=== PATIENT | female | born 1930 | race Two or more races ===

== ENCOUNTER 2018-10-03 12:36 | Inpatient (IN) | payer MEDICAID ==
[~2018-10-03] VITALS: Ht 167.6 cm; Wt 70.8 kg
[~2018-10-03 12:36] MED LIST: ACET-868 GT; ALBU2.5V13 NEB; ALEN70TA3 GT; BISA10SU8 RC; CAPT25TA3 GT; CEFT1FRO2 IV; CRAN3875 GT; DOCU-270 GT; GLIP5TAB13 GT; HYDR-3974 GT; HYDR-4076 PO; IPRA0.2S49 NEB; MAGN400O6 GT; MELA1TAB27 GT; METO50TA16 GT; MULT1TAB11 GT; MYLANTA GT; NA P133E RC; RANI150C4 GT; RIVA10TA GT; TAMS-12 PO
[2018-10-03] MEDS ORDERED: IV NS 0.9% 500 ML BAG IV ONE (13:00)
[2018-10-03] MEDS ORDERED: VANCOMYCIN 1 GM in IV D5W 250 ML IV ONE (13:00)
[2018-10-03] MEDS ORDERED: PIPERACILLIN /TAZOBACTAM 3.375 G in IV D5W 50 ML IV ONE (13:00)
--- NOTE | 2018-10-03 13:13 | NUR ---
CALLED NURSING SUP REQUESTED MED SURG BED
[2018-10-03 13:16] LABS: BASOPHILS # (AUTO) 0.1 /CMM (0.0-0.2); BASOPHILS % (AUTO) 0.5 % (0.0-2.0); EOSINOPHILS % (AUTO) 0.5 % (0.0-6.0); HEMATOCRIT 32 % (33-45); HEMOGLOBIN 10.2 g/dL (11.5-14.8); LYMPHOCYTES # (AUTO) 1.5 /CMM (0.8-4.8); MEAN CORPUSCULAR HGB CONC 32 g/dl (31.0-36.0); MEAN CORPUSCULAR VOLUME 91 fL (82-100); MONOCYTES # (AUTO) 1.1 /CMM (0.1-1.30); MONOCYTES % (AUTO) 9.4 % (2.0-12.0); NEUTROPHILS % (AUTO) 76.6 % (43.0-81.0); PLATELET COUNT (AUTO) 282 /CMM (150-450); RED BLOOD CELL COUNT(AUTO) 3.44 MIL/uL (4.0-5.2); WHITE BLOOD COUNT (AUTO) 11.7 K/uL (4.3-11.0)
[2018-10-03 13:27] LABS: CALCIUM, SERUM 8.9 mg/dL (8.5-10.1); CARBON DIOXIDE 33 mmol/L (21-32); CHLORIDE 105 mmol/L (98-107); CREATININE 0.6 mg/dL (0.6-1.3); GLUCOSE 116 mg/dL (74-106); POTASSIUM 4.2 mmol/L (3.5-5.1); SODIUM SERUM 142 mmol/L (136-145); UREA NITROGEN, BLOOD 22 mg/dL (7-18)
[2018-10-03 13:35] LABS: ALANINE AMINOTRANSFERASE 44 U/L (12-78); ALBUMIN 2.4 g/dL (3.4-5.0); ALKALINE PHOSPHATASE 70 U/L (46-116); ASPARTATE AMINOTRANSFERASE 26 U/L (15-37); BILIRUBIN,DIRECT 0.1 mg/dL (0.0-0.2); BILIRUBIN,TOTAL 0.2 mg/dL (0.2-1.0); TOTAL PROTEIN, SERUM 6.5 g/dL (6.4-8.2)
--- NOTE | 2018-10-03 13:49 | NUR ---
PT BIB PA FOR EVAL OF L 3RD AND 4TH TOE REDNESS AND SWELLING WITH WOUND TO BOTTOM OF L 3RD TOE. NAD NOTED. RESP EVEN UNLABORED. PT CONFUSED, WHICH IS HER BASELINE PER MEDICAL RECORD. PT BECOMING AGITATED WHEN ATTEMPTED TO OBTAIN IV ACCESS AND IN AND OUT CATH, REQUIRED 3 STAFF TO HOLD HER DOWN. PT ATTEMPTED TO SPIT AT AND BITE STAFF. IN ER BED 11.
[2018-10-03 13:50] LABS: APPEARANCE,URINE Cloudy (CLEAR); BILIRUBIN,URINE Negative (NEGATIVE); BLOOD, URINE Negative Ery/uL (NEGATIVE); COLOR,URINE Yellow (YELLOW); KETONES,URINE Trace (NEGATIVE); LEUKOCYTE ESTERASE ,URINE Small (NEGATIVE); NITRITE, URINE Negative (NEGATIVE); PROTEIN,URINE Trace mg/dl (NEGATIVE); UGLUCOSE Negative (NEGATIVE)
[2018-10-03 13:52] LABS: RBC,URINE 0-2 /HPF (0-2)
[2018-10-03 13:53] LABS: BACTERIA,URINE Few /HPF (None Seen); SQUAMOUS EPITHELIAL CELL,UR Few /HPF (None Seen)
[2018-10-03] MEDS ORDERED: VIT500LI GT (13:55)
[2018-10-03] MEDS ORDERED: AMIN30LI27 GT (13:55)
[2018-10-03] MEDS ORDERED: SENN-168 GT (13:55)
[2018-10-03] MEDS ORDERED: AMOX-430 GT (13:55)
[2018-10-03] MEDS ORDERED: IPRA0.2S9 IH (13:55)
[2018-10-03] MEDS ORDERED: MELA1TAB15 GT (13:55)
[2018-10-03] MEDS ORDERED: NUT.237L30 GT (13:55)
[2018-10-03] MEDS ORDERED: MAG30ORA GT (13:55)
[2018-10-03] MEDS ORDERED: IBUP-1953 GT (13:55)
[2018-10-03] MEDS ORDERED: TAMS-12 GT (13:55)
[2018-10-03] MEDS ORDERED: ACET-2605 GT (13:55)
[2018-10-03] MEDS ORDERED: Z GUARD REMEDY 2 OZ OINT TP PRN (14:30)
[2018-10-03] MEDS ORDERED: MAGNESIUM HYDROXIDE 30 ML UDC PO PRN (14:30)
[2018-10-03] MEDS ORDERED: ACETAMINOPHEN 325 MG TABLET PO PRN (14:30)
[2018-10-03] MEDS ORDERED: ZOLPIDEM TARTRATE 5 MG TABLET PO PRN (14:30)
[2018-10-03] MEDS ORDERED: MAG HYDROX/AL HYDROX/SIMETH 30 ML UDC PO PRN (14:30)
[2018-10-03] MEDS ORDERED: ONDANSETRON HCL/PF 4 MG/2 ML VIAL IVP PRN (14:30)
--- NOTE | 2018-10-03 15:01 | NUR ---
BED 310-1
--- NOTE | 2018-10-03 15:28 | NUR ---
REPORT GIVEN TO VIRIDIANA RADER FOR ADMISSION
--- NOTE | 2018-10-03 15:45 | NUR ---
PT TRANSPORTED TO 310 IN STABLE CONDITION
[2018-10-03] MEDS ORDERED: FEE PK DOSING 1 MIN EA MC ONE (15:56)
[2018-10-03] MEDS ORDERED: VANCOMYCIN 1 GM in IV D5W 250 ML IV SCH (16:00)
[2018-10-03] MEDS ORDERED: IPRATROPIUM NEB FS 0.5 MG/2.5 ML AMPUL.NEB IH PRN (16:00)
[2018-10-03] MEDS ORDERED: MAG HYDROX/AL HYDROX/SIMETH 30 ML UDC GT PRN (16:00)
[2018-10-03] MEDS ORDERED: BISACODYL SUPP (10 MG) 10 MG/SUPP.RECT SUPP.RECT RC PRN (16:00)
[2018-10-03] MEDS ORDERED: ALBUTEROL FS 2.5 MG/0.5 ML VIAL.NEB NEB PRN (16:00)
--- NOTE | 2018-10-03 16:00 | NUR ---
MS RN NOTES RECEIVED 88 YEAR OLD FEMALE. PATIENT ADMITTED FROM ER. REPORT RECEIVED FROM SHIRLEY RADER. PATIENT ARRIVED VIA GURNEY. AWAKE, ALERT AND ORIENTED X 1, CONFUSED. PATIENT REORIENTED TO STAFF, TIME/DATE, SITUATION. PATIENT BREATHING EVEN AND UNLABORED. DENIES ANY PAIN OR DISCOMFORT. NO CHANGES IN LOC NOTED AT THIS TIME. ADMITTED UNDER MEDICAL SUPERVISION OF DR. MEDINA, AWARE OF PATIENT ADMISSION. PATIENT SON (SAVAGE) PRESENT AT UNIT, VERIFIED POLST FROM SNF STATING PATIENT IS DNR/DNI AND SON SAVAEG AGREED. PATIENT AND SON ORIENTED TO STAFF, ROOM, ROOM MATE, PLAN OF CARE. PATIENT KETP CLEAN, DRY AND COMFORTABLE. SKIN CHECK DONE AND NOTED WITH BILATERAL UNDERBREAST REDNESS, WOUND ON LEFT 3RD/4TH TOE. TOOK PICTURES BUT PATIENT COMBATIVE DESPITE AGREEING WHEN EXPLAINED WITH PROCEDURE. PATIENT RELAXED WHEN NO PROCEDURE/CARE IS BEING DONE. WILL CONTINUE TO MONITOR. BED LOCKED AND IN LOW POSITION. BILATERAL UPPER SIDE RAILS UP AND LOCKED. CALL LIGHT WITHIN EASY REACH
[2018-10-03] MEDS ORDERED: CAPTOPRIL 25 MG TABLET GT SCH (17:00)
[2018-10-03] MEDS: IV NS 0.9% 1,000 ML IV PRN (17:54)
[2018-10-03] MEDS: CEFTRIAXONE 1 G in IV D5W 50 ML IV SCH (17:54)
[2018-10-03] MEDS: DOCUSATE SODIUM 100 MG CAPSULE PO SCH (18:22)
[2018-10-03] MEDS: METOPROLOL TARTRATE 50 MG TABLET GT SCH (18:23)
[2018-10-03] MEDS: SENNOSIDES 8.6 MG TABLET GT SCH (18:24)
--- NOTE | 2018-10-03 18:50 | NUR ---
MS RN NOTES PATIENT RESTING INSIDE ROOM. AWAKE, ALERT AND ORIENTED TO SELF. REORIENTED NEEDED. PATIENT CALM AND RELAXED. NO ACUTE DISTRESS AT THIS TIME. NO CHANGES IN LOC NOTED. DENIES ANY PAIN OR DISCOMFORT. ALL NURSING NEEDS ATTENDED AND MET. PATIENT KEPT CLEAN, DRY AND COMFORTABLE. WILL ENDORSE TO INCOMING SHIFT FOR HUY. BED LOCKED AND IN LOW POSITION. BILATERAL UPPER SIDE RAILS UP AND LOCKED. CALL LIGHT WITHIN EASY REACH
--- NOTE | 2018-10-03 19:40 | NUR ---
MS/RN RECEIVE PATIENT AWAKE, ALERT, COMFORTABLE, NO DISTRESS NOTED, DAUGHTER AT BEDSIDE. PER DAUGHTER PATIENT IS HUNGRY, PER DAUGHTER PATIENT IS ON REGULAR DIET IN THE FACILITY THE PATIENT CAME FROM, AND THAT, THE GT IF FOR MEDICATION ADMINISTRATION ONLY. SENT MESSAGE TO TAMRA FLANAGAN DNP, TO GET DIET ORDER.
[2018-10-03 20:00] VITALS: BP 150/82
[2018-10-03] MEDS: GLUCERNA SHAKE 237 ML CAN GT SCH (21:00)
--- NOTE | 2018-10-03 21:07 | NUR ---
MS/RN PER VANESSA BARBOZA, NO PO DIET AT THIS TIME PER DR. MEDINA. INFORMED THE DAUGHTER AT BEDSIDE, VERBALIZED UNDERSTANDING.
[2018-10-03] MEDS: HYDROCODONE/APAP 5/325MG 1 EACH TABLET PO PRN (22:07)
--- NOTE | 2018-10-03 22:27 | NUR ---
MS/RN GT FEEDING BOLUS GLUCERNA CAN 237 MLS BID. GLUCERNA 237 MLS CAN NOT AVAILABLE. GLUCERNA BOTTLE RATE 19.75 MLS/HOUR STARTED.
--- NOTE | 2018-10-04 01:22 | NUR ---
MS/RN PATIENT IS SLEEPING AT THIS TIME, AROUSABLE, APPEAR COMFORTABLE, NO SIGNS OF DISTRESS NOTED, CALL LIGHT IN REACH. WILL CONTINUE TO MONITOR.
[2018-10-04] MEDS: VANCOMYCIN 500 MG in IV D5W 100 ML IV SCH ×2 (02:07→15:50)
--- NOTE | 2018-10-04 06:09 | NUR ---
MS/RN IV INFILTRATED, REMOVED IV, APPLIED COLD COMPRESS AND ELEVATED EXTREMITY ON PILLOW. ATTEMPTED TO INSERT IV X 1 BUT UNSUCCESSFUL DUE TO PATIENT'S NOT COOPERATION. WILL ENDORSE.
[2018-10-04] MEDS: glipiZIDE 5 MG TABLET GT SCH (06:55)
--- NOTE | 2018-10-04 07:01 | NUR ---
MS/RN PATIENT IS AWAKE, CONFUSED, COMFORTABLE, NO DISTRESS NOTED, ALL NEEDS ATTENDED AT THIS TIME, WILL CONTINUE TO MONITOR.
[2018-10-04 08:00] VITALS: BP 135/77
[2018-10-04] MEDS: METOPROLOL TARTRATE 50 MG TABLET GT SCH ×2 (09:19→17:31)
[2018-10-04] MEDS: TAMSULOSIN 0.4 MG CAP.SR.24H GT SCH (09:20)
[2018-10-04] MEDS: DOCUSATE SODIUM 100 MG CAPSULE PO SCH ×2 (09:21→17:00)
[2018-10-04] MEDS: LISINOPRIL (10MG) 10 MG TABLET GT SCH (09:21)
[2018-10-04] MEDS: SENNOSIDES 8.6 MG TABLET GT SCH ×2 (09:21→17:00)
[2018-10-04 10:56] LABS: BASOPHILS % (AUTO) 0.3 % (0.0-2.0); EOSINOPHILS % (AUTO) 0.7 % (0.0-6.0); HEMATOCRIT 30 % (33-45); HEMOGLOBIN 10.1 g/dL (11.5-14.8); LYMPHOCYTES # (AUTO) 1.7 /CMM (0.8-4.8); LYMPHOCYTES % (AUTO) 13.2 % (20.0-44.0); MEAN CORPUSCULAR HGB CONC 34 g/dl (31.0-36.0); MEAN CORPUSCULAR VOLUME 89 fL (82-100); MONOCYTES # (AUTO) 0.9 /CMM (0.1-1.30); MONOCYTES % (AUTO) 7.3 % (2.0-12.0); NEUTROPHILS # (AUTO) 9.9 /CMM (1.8-8.9); NEUTROPHILS % (AUTO) 78.5 % (43.0-81.0); PLATELET COUNT (AUTO) 305 /CMM (150-450); RED BLOOD CELL COUNT(AUTO) 3.33 MIL/uL (4.0-5.2); WHITE BLOOD COUNT (AUTO) 12.6 K/uL (4.3-11.0)
[2018-10-04 11:09] LABS: CALCIUM, SERUM 8.7 mg/dL (8.5-10.1); CARBON DIOXIDE 29 mmol/L (21-32); CHLORIDE 106 mmol/L (98-107); CREATININE 0.6 mg/dL (0.6-1.3); GLUCOSE 94 mg/dL (74-106); POTASSIUM 3.8 mmol/L (3.5-5.1); SODIUM SERUM 142 mmol/L (136-145); UREA NITROGEN, BLOOD 10 mg/dL (7-18)
[2018-10-04] MEDS: GLUCERNA SHAKE 237 ML CAN GT SCH ×2 (13:00→21:43)
[2018-10-04 13:21] LABS: CHOLESTEROL 158 mg/dL (<200); HDL CHOLESTEROL 55 mg/dL (40-60); LDL 89 mg/dL (0-99); TRIGLYCERIDES 90 mg/dL (30-150)
--- NOTE | 2018-10-04 15:21 | NUR ---
Nurse Notes: Tech is unable to perform the arterial and venous studyies, patient is too confused to lie still in bed, needs medication to calm her down, Will arrange daughter to come if patient can calm down with family.
[2018-10-04 17:00] VITALS: BP 114/84
[2018-10-04] MEDS: CEFTRIAXONE 1 G in IV D5W 50 ML IV SCH (17:30)
[2018-10-04] MEDS: IV NS 0.9% 1,000 ML IV PRN (19:30)
--- NOTE | 2018-10-04 19:30 | NUR ---
MS/RN RECEIVE PATIENT AWAKE, A LITTLE BIT RESTLESS, NO DISTRESS NOTED, SITTER AT BEDSIDE. WILL MONITOR.
[2018-10-04 20:00] VITALS: BP 91/66
[2018-10-04] MEDS ORDERED: LORAZEPAM INJ 2 MG/ML VIAL IV ONE (20:30)
--- NOTE | 2018-10-04 23:59 | NUR ---
MS/RN PATIENT IS SLEEPING AT THIS TIME, AROUSABLE, APPEAR COMFORTABLE, NO DISTRESS NOTED, SITTER AT BEDSIDE. WILL CONTINUE TO MONITOR.
[2018-10-05] MEDS: VANCOMYCIN 500 MG in IV D5W 100 ML IV SCH ×2 (02:12→16:12)
--- NOTE | 2018-10-05 04:45 | NUR ---
MS/RN IV INFILTRATED, REMOVED IV ELEVATED AFFECTED EXTREMITY, COLD COMPRESS APPLIED. UNABLE TO INSERT NEW IV PATIENT IN NOT COOPERATING. WILL TRY AGAIN LATER. WILL MONITOR.
[2018-10-05 06:16] LABS: BASOPHILS # (AUTO) 0.1 /CMM (0.0-0.2); BASOPHILS % (AUTO) 0.6 % (0.0-2.0); EOSINOPHILS % (AUTO) 1.1 % (0.0-6.0); HEMATOCRIT 32 % (33-45); HEMOGLOBIN 10.4 g/dL (11.5-14.8); LYMPHOCYTES # (AUTO) 1.6 /CMM (0.8-4.8); LYMPHOCYTES % (AUTO) 14.5 % (20.0-44.0); MEAN CORPUSCULAR HGB CONC 33 g/dl (31.0-36.0); MEAN CORPUSCULAR VOLUME 90 fL (82-100); MONOCYTES # (AUTO) 0.8 /CMM (0.1-1.30); NEUTROPHILS # (AUTO) 8.3 /CMM (1.8-8.9); NEUTROPHILS % (AUTO) 76.8 % (43.0-81.0); PLATELET COUNT (AUTO) 326 /CMM (150-450); RED BLOOD CELL COUNT(AUTO) 3.52 MIL/uL (4.0-5.2); WHITE BLOOD COUNT (AUTO) 10.7 K/uL (4.3-11.0)
[2018-10-05 06:25] LABS: CALCIUM, SERUM 8.7 mg/dL (8.5-10.1); CARBON DIOXIDE 27 mmol/L (21-32); CHLORIDE 105 mmol/L (98-107); CREATININE 0.7 mg/dL (0.6-1.3); GLUCOSE 136 mg/dL (74-106); PHOSPHORUS 3.5 mg/dL (2.5-4.9); POTASSIUM 3.7 mmol/L (3.5-5.1); SODIUM SERUM 143 mmol/L (136-145); UREA NITROGEN, BLOOD 9 mg/dL (7-18)
--- NOTE | 2018-10-05 07:03 | NUR ---
MS/RN PATIENT IS STILL SLEEPING, AROUSABLE, APPEAR COMFORTABLE, NO SIGNS OF DISTRESS NOTED. ALL NEEDS ATTENDED AT THIS TIME. WILL CONTINUE TO MONITOR.
[2018-10-05] MEDS: glipiZIDE 5 MG TABLET GT SCH (07:40)
[2018-10-05] MEDS: HYDROCODONE/APAP 5/325MG 1 EACH TABLET PO PRN ×2 (07:58→20:10)
[2018-10-05 08:00] VITALS: BP 160/109
[2018-10-05] MEDS: DOCUSATE SODIUM 100 MG CAPSULE PO SCH ×2 (09:00→17:00)
[2018-10-05] MEDS: LISINOPRIL (10MG) 10 MG TABLET GT SCH (09:46)
[2018-10-05] MEDS: METOPROLOL TARTRATE 50 MG TABLET GT SCH ×2 (09:46→18:17)
[2018-10-05] MEDS: TAMSULOSIN 0.4 MG CAP.SR.24H GT SCH (09:47)
[2018-10-05] MEDS: SENNOSIDES 8.6 MG TABLET GT SCH ×2 (09:47→18:14)
[2018-10-05] MEDS: GLUCERNA SHAKE 237 ML CAN GT SCH ×2 (09:56→20:10)
--- NOTE | 2018-10-05 10:10 | NUR ---
HELD COLACE PO. PT. RECEIVED PO MEDICATIONS VIA G TUBE. CAN NOT CRUSH COLACE PO TO ADMINISTER. WILL FOLLOW UP WITH .
[2018-10-05 16:00] VITALS: BP 108/82
[2018-10-05] MEDS ORDERED: DEXTROSE 50%-WATER 50 ML DISP.SYRIN IV PRN (16:30)
[2018-10-05] MEDS: LACTOBACILLUS RHAMNOSUS GG 1 EACH CAP.SPRINK PO SCH (18:14)
[2018-10-05] MEDS: CEFTRIAXONE 1 G in IV D5W 50 ML IV SCH (18:21)
[2018-10-05] MEDS: BLOOD SUGAR DIAGNOSTIC 1 EACH STRIP IN SCH ×2 (18:36→22:21)
[2018-10-05] MEDS: INSULIN REGULAR, HUMAN 100 UNIT/ML 3 ML VIAL SQ PRN ×2 (18:39→22:21)
--- NOTE | 2018-10-05 19:30 | NUR ---
RN OPENING NOTES Received patient sleeping in bed, easily arousable. 1:1 sitter at bedside. Breathing even and unlabored. Not in any distress. Peripheral IV infusing at 75mL/hr. Safety measures in place. CAll martinez within reach. Bed in low, locked position. Will continue to monitor accordingly.
[2018-10-05 20:00] VITALS: BP 134/73
--- NOTE | 2018-10-05 20:40 | NUR ---
RN CLOSING NOTES 1:1 SITTER AT BEDSIDE. PT. IS A&OX1, CONFUSED. NO S/S OF ACUTE DISTRESS. IV FLUIDS RUNNING AT 75 ML/HR. PT. HAS A G TUBE THAT IS PATENT, AND FLUSHING. IV ACCESS ON LEFT WRIST IS INTACT AND PATENT. BED IS IN LOWEST, AND LOCKED POSITION. 2 SIDE RAILS UP, AND CALL LIGHT IS WITHIN REACH. ENDORSED REPORT TO NURSE.
[2018-10-06] MEDS: VANCOMYCIN 500 MG in IV D5W 100 ML IV SCH (01:35)
[2018-10-06 06:16] LABS: BASOPHILS # (AUTO) 0.1 /CMM (0.0-0.2); BASOPHILS % (AUTO) 0.7 % (0.0-2.0); EOSINOPHILS % (AUTO) 2.3 % (0.0-6.0); HEMATOCRIT 34 % (33-45); LYMPHOCYTES % (AUTO) 30.7 % (20.0-44.0); MEAN CORPUSCULAR HGB CONC 33 g/dl (31.0-36.0); MEAN CORPUSCULAR VOLUME 90 fL (82-100); MONOCYTES # (AUTO) 0.9 /CMM (0.1-1.30); MONOCYTES % (AUTO) 8.9 % (2.0-12.0); NEUTROPHILS # (AUTO) 5.5 /CMM (1.8-8.9); NEUTROPHILS % (AUTO) 57.4 % (43.0-81.0); PLATELET COUNT (AUTO) 344 /CMM (150-450); RED BLOOD CELL COUNT(AUTO) 3.74 MIL/uL (4.0-5.2); WHITE BLOOD COUNT (AUTO) 9.7 K/uL (4.3-11.0)
[2018-10-06] MEDS: BLOOD SUGAR DIAGNOSTIC 1 EACH STRIP IN SCH ×2 (06:34→12:28)
[2018-10-06] MEDS: INSULIN REGULAR, HUMAN 100 UNIT/ML 3 ML VIAL SQ PRN (06:35)
[2018-10-06 06:45] LABS: CALCIUM, SERUM 8.7 mg/dL (8.5-10.1); CARBON DIOXIDE 28 mmol/L (21-32); CHLORIDE 107 mmol/L (98-107); CREATININE 0.7 mg/dL (0.6-1.3); GLUCOSE 100 mg/dL (74-106); MAGNESIUM 2.2 mg/dL (1.8-2.4); PHOSPHORUS 3.9 mg/dL (2.5-4.9); POTASSIUM 4.3 mmol/L (3.5-5.1); SODIUM SERUM 144 mmol/L (136-145); UREA NITROGEN, BLOOD 15 mg/dL (7-18)
[2018-10-06] MEDS: glipiZIDE 5 MG TABLET GT SCH (06:45)
--- NOTE | 2018-10-06 07:43 | NUR ---
RN CLOSING NOTES PATIENT SLEEPING IN BED, BUT EASILY AROUSABLE. 1:1 SITTER AT BEDSIDE. PATIENT IS ALERT, ORIENTED X 1, CONFUSED. NO S/S OF ACUTE DISTRESS. IV LINE ON L) WRIST, INTACT AND PATENT, S/L. G-TUBE IN PLACE, PATENT AND FLUSHING. SAFETY MEASURES IN PLACE; BED IS IN LOWEST AND LOCKED POSITION. X2 SIDE RAILS UP, CALL HALEY WITHIN REACH. EPISODES OF AGITATION AND COMBATIVENESS DURING THE SHIFT. ENDORSED REPORT TO AM NURSE.
[2018-10-06 08:00] VITALS: BP 158/58
--- NOTE | 2018-10-06 08:00 | NUR ---
RN NOTES RECEIVED PATIENT IN THE BED, A/A/O X1/2, TOTAL CARE. PATIENT HAS NO ACUTE RESPIRATORY DISTRESS, G-TUBE INTACT, MEDICATION ADMINISTERED VIS G-TUBE, ALSO PATIENT EAT WITH ASSIST OF BOX CAR WASHER. V/S STABLE, ASSIST TURN AND REPOSTION Q 2 HR. IV ON LEFT HAND INTACT. NEEDS ATTENDED AND ANTICIPATED, 1;1 SITTER NEXT TO THE BED FOR SAFETY
[2018-10-06] MEDS ORDERED: CEPH-570 PO (10:10)
[2018-10-06] MEDS: DOCUSATE SODIUM 100 MG CAPSULE PO SCH (10:34)
[2018-10-06] MEDS: LACTOBACILLUS RHAMNOSUS GG 1 EACH CAP.SPRINK PO SCH (10:34)
[2018-10-06] MEDS: SENNOSIDES 8.6 MG TABLET GT SCH (10:35)
[2018-10-06 10:36] VITALS: BP 158/68
[2018-10-06] MEDS: LISINOPRIL (10MG) 10 MG TABLET GT SCH (10:36)
[2018-10-06] MEDS: METOPROLOL TARTRATE 50 MG TABLET GT SCH (10:36)
[2018-10-06] MEDS: TAMSULOSIN 0.4 MG CAP.SR.24H GT SCH (10:41)
[2018-10-06] MEDS: HYDROCODONE/APAP 5/325MG 1 EACH TABLET PO PRN (10:41)
--- NOTE | 2018-10-06 10:41 | NUR ---
RN NOTES ADMINISTERED NARCO 5/325 MG PRN VIA G-TUBE BLE PAIN 02/25 PER PATIENT REQUEST, V/S TAKEN BP 158/68, P-60, CONTINUED MONITORING. DAUGHTER NEXT TO THE BED.
[2018-10-06] MEDS: GLUCERNA SHAKE 237 ML CAN GT SCH (10:42)
--- NOTE | 2018-10-06 13:32 | NUR ---
DISCHARGE NOTES PATIENT DISCHARGE AT THIS TIME GOING BACK TO SNF. PATIENT A/O X1, NO ACUTE RESPIRATORY DISTRESS, BS- 137 MG/DL, V/S STABLE. PATIENT HAS NO PAIN AT THIS TIME. MED RECONCILIATION AND DISCHARGE ORDER REVIEWED AND EXPLAINED TO. REPORT GIVEN SNF RN NAME ARNALDO. RN VERBALIZED UNDERSTANDING. BELONGING BACK TO THE PATIENT. PATIENT TOTAL CARE, SIGN PAPER WITH ANOTHER RN. DAUGHTER NEXT TO THE BED. PATIENT CORRECTIONAL GUARD BY AMBULANCE.
[2018-11-12] MEDS ORDERED: CEPH250S GT (11:36)
[2018-11-12] MEDS ORDERED: VANC1PLA10 IV (11:36)
[2018-11-12] MEDS ORDERED: CEFT1VIA14 IV (12:09)
== END 2018-10-06 13:30 | DRG 383 ==
LOC: ER 12:39 → MED 15:09
PROVIDERS: ADMIT Internal Medicine; ATTEND Internal Medicine
DX: L03.032 Cellulitis of left toe (principal); E11.51 Type 2 diabetes mellitus with diabetic peripheral angiopathy without gangrene; D68.59 Other primary thrombophilia; E11.621 Type 2 diabetes mellitus with foot ulcer; I48.91 Unspecified atrial fibrillation; Z86.73 Personal history of transient ischemic attack (TIA), and cerebral infarction without residual deficits; D63.8 Anemia in other chronic diseases classified elsewhere; F03.90 Unspecified dementia, unspecified severity, without behavioral disturbance, psychotic disturbance, mood disturbance, and anxiety; I25.10 Atherosclerotic heart disease of native coronary artery without angina pectoris; E78.5 Hyperlipidemia, unspecified; I10 Essential (primary) hypertension; M19.90 Unspecified osteoarthritis, unspecified site; L03.116 Cellulitis of left lower limb; Z79.83 Long term (current) use of bisphosphonates; Z79.84 Long term (current) use of oral hypoglycemic drugs; Z95.0 Presence of cardiac pacemaker
CPT/HCPCS: 36415; 71045-TC; 73630-TC; 80048-TC; 80061-TC; 80076-TC; 80202-TC; 81000-TC; 82962-TC; 83605-TC; 83735-TC; 84100-TC; 84484-TC; 85025-TC; 85730-TC; 87040-TC; 87070-TC; 87081-TC; 87086-TC; 93971-TC; A6402; G0378; J0696; J1815; J2543; J3370; J7030; J7040; J7060

== ENCOUNTER 2018-11-08 12:01 | Inpatient (IN) | payer MEDICAID ==
[~2018-11-08] VITALS: Ht 162.6 cm; Wt 63.0 kg
[~2018-11-08 12:01] MED LIST changes: +ACET-2605 GT; +AMIN30LI27 GT; -CEFT1FRO2 IV; +CEPH-570 PO; -CRAN3875 GT; -HYDR-3974 GT; -HYDR-4076 PO; -IPRA0.2S49 NEB; +IPRA0.2S9 IH; +MAG30ORA GT; +MELA1TAB15 GT; -MELA1TAB27 GT; -MYLANTA GT; +NUT.237L30 GT; -RIVA10TA GT; +SENN-168 GT; +TAMS-12 GT; -TAMS-12 PO; +VIT500LI GT
--- NOTE | 2018-11-08 12:15 | NUR ---
BIB PA [facility] FOR NECROTIC L 3RD TOE EVAL AND PULLED G TUBE. PT AAXOX1, VSS, RR EVEN & UNLABORED. DENIES CP, SOB, N/V, DIZZINESS @ THIS TIME. PT SEEN & EVAL'D BY DR. KWAN. WILL CONT TO MONITOR.
--- NOTE | 2018-11-08 12:23 | NUR ---
CALLED NURSING SUP. FOR MS BED
[2018-11-08] MEDS ORDERED: TRAM50TA2 GT (12:25)
[2018-11-08] MEDS ORDERED: GABA-534 GT (12:25)
[2018-11-08] MEDS ORDERED: ARGI1POW13 GT (12:25)
[2018-11-08] MEDS ORDERED: CLINDAMYCIN 600 MG in IV D5W 100 ML IV ONE (12:30)
[2018-11-08] MEDS ORDERED: IV NS 0.9% 500 ML BAG IV ONE (12:30)
[2018-11-08] MEDS ORDERED: LORAZEPAM INJ 2 MG/ML VIAL IM ONE (12:30)
[2018-11-08 12:40] LABS: BASOPHILS % (AUTO) 0.5 % (0.0-2.0); EOSINOPHILS % (AUTO) 0.1 % (0.0-6.0); HEMATOCRIT 37 % (33-45); HEMOGLOBIN 12.1 g/dL (11.5-14.8); LYMPHOCYTES # (AUTO) 1.7 /CMM (0.8-4.8); LYMPHOCYTES % (AUTO) 23.7 % (20.0-44.0); MEAN CORPUSCULAR HGB CONC 32 g/dl (31.0-36.0); MEAN CORPUSCULAR VOLUME 90 fL (82-100); MONOCYTES # (AUTO) 0.8 /CMM (0.1-1.30); MONOCYTES % (AUTO) 11.2 % (2.0-12.0); NEUTROPHILS # (AUTO) 4.6 /CMM (1.8-8.9); NEUTROPHILS % (AUTO) 64.5 % (43.0-81.0); PLATELET COUNT (AUTO) 223 /CMM (150-450); RED BLOOD CELL COUNT(AUTO) 4.14 MIL/uL (4.0-5.2); WHITE BLOOD COUNT (AUTO) 7.2 K/uL (4.3-11.0)
[2018-11-08 12:50] LABS: CALCIUM, SERUM 8.5 mg/dL (8.5-10.1); CARBON DIOXIDE 29 mmol/L (21-32); CHLORIDE 103 mmol/L (98-107); CREATININE 0.7 mg/dL (0.6-1.3); GLUCOSE 126 mg/dL (74-106); POTASSIUM 4.1 mmol/L (3.5-5.1); SODIUM SERUM 138 mmol/L (136-145); UREA NITROGEN, BLOOD 17 mg/dL (7-18)
--- NOTE | 2018-11-08 12:51 | NUR ---
MS 202
--- NOTE | 2018-11-08 13:00 | NUR ---
DR. KWAN INSERTED 12FR GTUBE, PT NESTOR WELL.
[2018-11-08 13:03] LABS: ALANINE AMINOTRANSFERASE 15 U/L (12-78); ALBUMIN 2.8 g/dL (3.4-5.0); ALKALINE PHOSPHATASE 77 U/L (46-116); ASPARTATE AMINOTRANSFERASE 21 U/L (15-37); BILIRUBIN,DIRECT 0.1 mg/dL (0.0-0.2); BILIRUBIN,TOTAL 0.3 mg/dL (0.2-1.0); TOTAL PROTEIN, SERUM 7.1 g/dL (6.4-8.2)
[2018-11-08] MEDS ORDERED: ACETAMINOPHEN 325 MG TABLET MC PRN (14:00)
[2018-11-08] MEDS ORDERED: MAGNESIUM HYDROXIDE 30 ML UDC GT PRN (14:00)
[2018-11-08] MEDS ORDERED: ACETAMINOPHEN 650 MG/SUPP.RECT RC PRN (14:00)
[2018-11-08] MEDS ORDERED: LORAZEPAM INJ 2 MG/ML VIAL IV PRN (14:00)
[2018-11-08] MEDS ORDERED: DEXTROSE 50%-WATER 50 ML DISP.SYRIN IV PRN (14:00)
--- NOTE | 2018-11-08 14:00 | NUR ---
REPORT GIVEN TO DIOR MCNEILL FOR CONT OF CARE.
[2018-11-08] MEDS ORDERED: FEE PK DOSING 1 MIN EA MC ONE (14:18)
[2018-11-08 14:49] VITALS: BP 154/81
--- NOTE | 2018-11-08 14:49 | NUR ---
MS MEDICAL TECHNICAL WRITER NOTE RECEIVED PT FROM ER VIA JAJA FOR G-TUBE REMOVAL AND LEFT TOE NECROSIS. 12F G-TUBE INSERTED IN THE ER BY DR. JAQUEZ AND IS PENDING KUB FOR PLACEMENT ASSESSMENT. PT IS ALERT AND ORIENTED TO SELF ONLY, PRIMARILY [place] SPEAKING. RECORDS AND POLST OBTAINED FROM SNF DOCUMENTATION, NOTED AND PLACED IN CHART. VS OBTAINED PER PROTOCOL. WOUND DOCUMENTATION COMPLETED PER PROTOCOL. LEFT HAND #20G IV IS PATENT, CLEAN, DRY AND INTACT AT THIS TIME. ADMISSION ORDERS RECEIVED FROM MICHELLE CARCAMO NP AND INITIATED.
--- NOTE | 2018-11-08 14:51 | NUR ---
MS RN NOTE PER LUCAS IN RADIOLOGY THEY WILL SEE PT SHORTLY FOR KUB
--- NOTE | 2018-11-08 14:53 | NUR ---
MS RN NOTE PER MICHELLE CARCAMO NP IF KUB SHOWS POSITIVE PLACEMENT, OKAY TO USE G-TUBE FOR MEDS. TF IS PENDING DIETARY CONSULT.
[2018-11-08 15:00] VITALS: BP 154/81
--- NOTE | 2018-11-08 15:06 | NUR ---
MS RN NOTE INFORMED MICHELLE CARCAMO NP THAT PER SNF RECORD, PT USES G-TUBE FOR MEDICATIONS ONLY AND HAS MECHANICAL SOFT, FINELY CHOPPED CCHO DIET ORDERED. PER MICHELLE, SWALLOW EVAL PRIOR TO INITIATED PO INTAKE.
--- NOTE | 2018-11-08 16:10 | NUR ---
MS RN NOTE CONTACTED MICHELLE CARCAMO NP REGARDING KUB RESULTS AND SENT COPY OF RESULT. AWAITING RESPONSE
[2018-11-08] MEDS: PANTOPRAZOLE 40 MG VIAL IV SCH (16:47)
[2018-11-08] MEDS: IV NS 0.9% 1,000 ML IV PRN (16:47)
[2018-11-08] MEDS: VANCOMYCIN 1 GM in IV D5W 250 ML IV SCH (16:47)
[2018-11-08] MEDS: METOPROLOL TARTRATE 50 MG TABLET GT SCH (17:00)
[2018-11-08] MEDS: LISINOPRIL (5MG) 5 MG TABLET GT SCH (17:00)
[2018-11-08] MEDS ORDERED: CAPTOPRIL 25 MG TABLET GT SCH (17:00)
[2018-11-08] MEDS: PROSOURCE / PROSTAT (PYXIS) 30 ML UDC GT SCH (17:00)
--- NOTE | 2018-11-08 17:00 | NUR ---
MS RN PT DISCHARGED PT DISCHARGED HOME VIA PRIVATE CAR IN MEDICALLY STABLE CONDITION. ACCOMPANIED BY DAUGHTER MALU. VS WNL, PT IS A/OX4, DENIES SOB, CHEST PAIN, N/V. BREATHING IS EVEN AND UNLABORED ON ROOM AIR. ABD INCISIONS ARE WITHOUT REDNESS, SWELLING, OR ANY DRAINAGE. DRESSING CHANGED PRIOR TO D/C, WOUND DOCUMENTATION COMPLETED. LEFT FA PERIPHERAL IV REMOVED WITH CATHETER TIP INTACT. DISCHARGE EDUCATION AND PAPERWORK PROVIDED PER PROTOCOL. DISCUSSED DISCHARGE RECOMMENDATIONS TO FOLLOW UP WITH PCP AND DR. VANCE WITHIN ONE WEEK, PROVIDED OFFICE PHONE NUMBER FOR DR. VANCE. INFORMED PT AND DAUGHTER TO CALL 911 OR RETURN TO THE NEAREST ER FOR CHEST PAIN, SOB, TEMPERATURE THAT DOES NOT GO DOWN WITH TYLENOL ADMINISTRATION, MELENA, NAUSEA, VOMITING, UNILATERAL CALF SWELLING, INCREASED OR FOUL DRAINAGE OR REDNESS, WARMTH, OR SWELLING FROM THE SURGICAL SITE. DISCUSSED APPROPRIATE USE OF PRESCRIBED MEDICATION AND READING MATERIAL PROVIDED. PT AND DAUGHTER VERBALIZED UNDERSTANDING. ALL BELONGINGS ACCOUNTED FOR AND BELONGINGS LIST SIGNED AND PLACED IN CHART. THE NURSE ACCOMPANIED THE PT TO THE MAIN LOBBY VIA WHEELCHAIR WITHOUT INCIDENT. Addendum: 11/08/18 at 1705 by OSITO COSBY RN PLEASE DISREGARD, ERROR, WRONG PATIENT
--- NOTE | 2018-11-08 17:24 | NUR ---
MS RADER NON ADMIN NOTE PT STILL PENDING CLEARANCE FOR USE OF G-TUBE.
[2018-11-08] MEDS: BLOOD SUGAR DIAGNOSTIC 1 EACH STRIP IN SCH ×2 (18:00→23:33)
--- NOTE | 2018-11-08 18:00 | NUR ---
MS RN NOTE PER MICHELLE CARCAMO NP OBTAIN KUB WITH GASTROGRAFIN PRIOR TO USE OF G-TUBE.
--- NOTE | 2018-11-08 18:02 | NUR ---
MS RADER NON ADMIN NOTE PT STILL PENDING CLEARANCE FOR USE OF G-TUBE.
[2018-11-08] MEDS ORDERED: DIATR MEGLU/DIATRIZOATE SODIUM 30 ML BOTTLE (GASTROGRAPHIN) ONE (18:18)
--- NOTE | 2018-11-08 18:21 | NUR ---
MS RN NOTE PT REFUSED ACCU CHECK AND ATTEMPTED TO STRIKE NURSE.
--- NOTE | 2018-11-08 18:51 | NUR ---
MS RN CLOSING NOTE PT IN BED, A/OX1. NO ACUTE DISTRESS NOTED AT THIS TIME, BREATHING IS EVEN AND UNLABORED ON ROOM AIR. PT IS ALERT AND ORIENTED TO SELF ONLY, PRIMARILY [place] SPEAKING. LEFT HAND #20G IV IS INFUSING ORDERED WITHOUT REDNESS OR SWELLING. PT PENDING KUB RESULT PRIOR TO USE OF G-TUBE. ADLS PROVIDED. NPO STATUS MAINTAINED. ASPIRATION PRECAUTIONS MAINTAINED. BED IS LOCKED AND IN LOWEST POSITION, SIDE RAILS UP X3, BED ALARM ON, CALL LIGHT AND POSSESSION WITHIN REACH.
--- NOTE | 2018-11-08 19:37 | NUR ---
MS/RN OPENING NOTES RECEIVED PATIENT IN BED, REQUIRE ASSISTANCE AND SAFETY MONITORING, AWAKE, RECEIVED ENDORSEMENT FORM AM RN FOR HUY. RESPIRATIONS EVEN AND UNLABORED, SKIN WARM TO TOUCH, MONITORING FOR S/S OF HYPO/HYPERGLYCEMIA, IV ON LEFT HAND ABLE TO FLUSH, TO MONITOR XRAY CONFIRMATION OF GTUBE, WILL CONTINUE TO PROVIDE CARE, BED LOCKED, CALL LIGHTS WITHIN R EACH.
[2018-11-08 20:00] VITALS: BP 165/71
--- NOTE | 2018-11-08 20:30 | NUR ---
MS/RN NOTES CALLED XRAY AND FOLLOW UP RESULT FOR XRAY TAKEN LAST 1599, WILL CALL FOR RESULT ONCE READY.
--- NOTE | 2018-11-08 21:53 | NUR ---
MS/RN NOTES PATIENT DAUGHTER REQUESTED REGARDING DIET TO BE FOLLOWED WHILE PATIETN WAS AT SNF, DIET CHOPPED FOOD MECHANICAL DIET AND BE FED, ONLY USES GTUBE FOR MEDICATION, MD MEDINA MADE AWARE AND ORDER FOR DIET TO BE CHANGED.
[2018-11-08] MEDS: GABAPENTIN 300 MG CAPSULE GT SCH (22:01)
[2018-11-08] MEDS: GLUCERNA SHAKE 237 ML CAN GT SCH (22:01)
[2018-11-08] MEDS: TRAMADOL HCL 50 MG TABLET GT SCH (22:01)
[2018-11-08] MEDS: INSULIN REGULAR, HUMAN 100 UNIT/ML 3 ML VIAL SQ PRN (23:41)
--- NOTE | 2018-11-08 23:48 | NUR ---
MS/RN NOTES BLOOD SUGAR CHECK AT 182, WITH SLIDING SCALE COVERAGE GIVEN AT 30 UNITS, GLUCERNA I CAN WAS GIVEN VIA [employer]UBE WILL MONITOR.WITH ORDER TO BE FED MECHANICAL SOFT FAMILY REQUEST AND MD MEDINA MADE AWARE. Addendum: 11/09/18 at 0359 by JENNIFER BOWEN RN TO DISREGARD 30 UNIT ENTERED DUE TO TYPO BUT ONLY 3 UNITS COVERAGED VERIFIED BY ANOTHER RN.
[2018-11-09] MEDS: GABAPENTIN 300 MG CAPSULE GT SCH ×3 (04:18→22:03)
[2018-11-09] MEDS: BLOOD SUGAR DIAGNOSTIC 1 EACH STRIP IN SCH ×4 (05:53→23:54)
[2018-11-09] MEDS: IV NS 0.9% 1,000 ML IV PRN (06:02)
--- NOTE | 2018-11-09 06:24 | NUR ---
309-2 MS/RN NOTES PATIENT AWAKE ,EXTENSIVE ASSISTACE NEEDED. MONITORED FOR SAFETY. OFF LOAD EXTREMITIED, GTUBE MATEO, kept skin dry and intact, gtube patent. WILL MONITOR. CALL LIGHTS WITHIN REACH. BED LOCKED. REPOSITONED FOR COMFORT.
[2018-11-09 07:01] LABS: BASOPHILS % (AUTO) 0.5 % (0.0-2.0); EOSINOPHILS % (AUTO) 0.3 % (0.0-6.0); HEMATOCRIT 33 % (33-45); HEMOGLOBIN 10.4 g/dL (11.5-14.8); LYMPHOCYTES # (AUTO) 1.6 /CMM (0.8-4.8); LYMPHOCYTES % (AUTO) 20.4 % (20.0-44.0); MEAN CORPUSCULAR HGB CONC 32 g/dl (31.0-36.0); MEAN CORPUSCULAR VOLUME 92 fL (82-100); MONOCYTES # (AUTO) 0.9 /CMM (0.1-1.30); MONOCYTES % (AUTO) 11.9 % (2.0-12.0); NEUTROPHILS # (AUTO) 5.2 /CMM (1.8-8.9); NEUTROPHILS % (AUTO) 66.9 % (43.0-81.0); PLATELET COUNT (AUTO) 221 /CMM (150-450); RED BLOOD CELL COUNT(AUTO) 3.56 MIL/uL (4.0-5.2); WHITE BLOOD COUNT (AUTO) 7.7 K/uL (4.3-11.0)
[2018-11-09 07:03] LABS: CALCIUM, SERUM 7.8 mg/dL (8.5-10.1); CARBON DIOXIDE 20 mmol/L (21-32); CHLORIDE 104 mmol/L (98-107); CREATININE 0.6 mg/dL (0.6-1.3); GLUCOSE 95 mg/dL (74-106); MAGNESIUM 2.2 mg/dL (1.8-2.4); PHOSPHORUS 2.4 mg/dL (2.5-4.9); POTASSIUM 4.5 mmol/L (3.5-5.1); SODIUM SERUM 135 mmol/L (136-145); UREA NITROGEN, BLOOD 12 mg/dL (7-18)
[2018-11-09 08:00] VITALS: BP 149/62
--- NOTE | 2018-11-09 08:00 | NUR ---
RN OPENING NOTES Received Patient asleep in bed. Patient aroused when name called or touched. VS stable. G-tube placement checked. G-tube clean, dry and intact. Residual 0. IV access on LEFT HAND 20g clean, dry and intact. IVF NS running at 75ml/hr. NECROTIC LEFT TOE dressing clean, dry and intact. Administered medications. Turned and repositioned q2h. Patient incontinent, using diaper. Daughter at bedside. Call light within reach. Will continue to monitor.
[2018-11-09] MEDS: TAMSULOSIN 0.4 MG CAP.SR.24H GT SCH (09:06)
[2018-11-09] MEDS: LISINOPRIL (5MG) 5 MG TABLET GT SCH ×2 (09:06→16:47)
[2018-11-09] MEDS: MULTIVIT W/MINERALS 1 TAB TABLET GT SCH (09:07)
[2018-11-09] MEDS: METOPROLOL TARTRATE 50 MG TABLET GT SCH ×2 (09:07→18:13)
[2018-11-09] MEDS: PROSOURCE / PROSTAT (PYXIS) 30 ML UDC GT SCH ×2 (09:08→16:46)
[2018-11-09] MEDS: TRAMADOL HCL 50 MG TABLET GT SCH ×2 (09:08→22:03)
[2018-11-09] MEDS: GLUCERNA SHAKE 237 ML CAN GT SCH ×2 (09:08→22:04)
[2018-11-09] MEDS: PANTOPRAZOLE 40 MG VIAL IV SCH (09:08)
[2018-11-09] MEDS ORDERED: NEUTRA PHOS 1 POWD.PACKET PO ONE (09:30)
--- NOTE | 2018-11-09 12:00 | NUR ---
RN NOTES BS 122, no coverage given. Hold Neurontin and lunch d/t sedation. Will continue to monitor.
[2018-11-09] MEDS: VANCOMYCIN 1 GM in IV D5W 250 ML IV SCH (15:08)
[2018-11-09 16:00] VITALS: BP 122/63
[2018-11-09 16:34] VITALS: BP 122/63
--- NOTE | 2018-11-09 17:00 | NUR ---
RN NOTES BS 133mg/dl, Patient opens eyes and responds to name called. All medications administered. VS stable. Assisted turn and reposition. Needs rendered. Will continue to monitor.
[2018-11-09] MEDS: INSULIN REGULAR, HUMAN 100 UNIT/ML 3 ML VIAL SQ PRN ×2 (18:25→23:56)
--- NOTE | 2018-11-09 18:48 | NUR ---
RN CLOSING NOTES Patient awake and comfortable in bed. A/O x 2. Patient ate dinner, assisted by EVENT SPECIALIST PRODUCT DEMONSTRATOR. BS 133mg/dl, administered 2 units Insulin Regular. All medications administered. VS stable with no acute distress. Patient repositioned. NECROTIC LEFT TOE dressing is clean, dry and intact. Will endorse care of plan to oncoming nurse.
--- NOTE | 2018-11-09 19:10 | NUR ---
MS RN NOTES RECEIVED PT IN BED SLEEPING BUT EASILY AWOKEN VERBALLY OR BY TOUCH. PT A/O X1-2 AND ABLE TO MAKE NEEDS KNOWN. RESPIRATIONS EVEN AND UNLABORED WITH NO S/S OF ACUTE DISTRESS OR SOB NOTED. PT DENIES PAIN AT THIS TIME. CALL LIGHT WITHIN REACH. WILL CONTINUE TO MONITOR.
[2018-11-10] MEDS: GABAPENTIN 300 MG CAPSULE GT SCH ×2 (05:47→13:00)
[2018-11-10] MEDS: BLOOD SUGAR DIAGNOSTIC 1 EACH STRIP IN SCH ×3 (06:25→17:14)
[2018-11-10 06:28] LABS: BASOPHILS % (AUTO) 0.3 % (0.0-2.0); EOSINOPHILS % (AUTO) 1.2 % (0.0-6.0); HEMATOCRIT 32 % (33-45); HEMOGLOBIN 10.5 g/dL (11.5-14.8); LYMPHOCYTES # (AUTO) 1.7 /CMM (0.8-4.8); LYMPHOCYTES % (AUTO) 26.1 % (20.0-44.0); MEAN CORPUSCULAR HGB CONC 33 g/dl (31.0-36.0); MEAN CORPUSCULAR VOLUME 89 fL (82-100); MONOCYTES # (AUTO) 0.8 /CMM (0.1-1.30); MONOCYTES % (AUTO) 12.3 % (2.0-12.0); NEUTROPHILS # (AUTO) 3.9 /CMM (1.8-8.9); NEUTROPHILS % (AUTO) 60.1 % (43.0-81.0); PLATELET COUNT (AUTO) 196 /CMM (150-450); RED BLOOD CELL COUNT(AUTO) 3.53 MIL/uL (4.0-5.2); WHITE BLOOD COUNT (AUTO) 6.6 K/uL (4.3-11.0)
[2018-11-10 06:33] LABS: CALCIUM, SERUM 7.7 mg/dL (8.5-10.1); CARBON DIOXIDE 26 mmol/L (21-32); CHLORIDE 106 mmol/L (98-107); CREATININE 0.6 mg/dL (0.6-1.3); GLUCOSE 74 mg/dL (74-106); PHOSPHORUS 2.6 mg/dL (2.5-4.9); POTASSIUM 3.9 mmol/L (3.5-5.1); SODIUM SERUM 139 mmol/L (136-145); UREA NITROGEN, BLOOD 18 mg/dL (7-18)
--- NOTE | 2018-11-10 07:54 | NUR ---
MS RN NOTES PT IN BED SLEEPING BUT EASILY AWOKEN VERBALLY OR BY TOUCH. PT A/O X1-2 AND ABLE TO MAKE NEEDS KNOWN. RESPIRATIONS EVEN AND UNLABORED WITH NO S/S OF ACUTE DISTRESS OR SOB NOTED. PT DENIES PAIN AT THIS TIME. CALL LIGHT WITHIN REACH. WILL ENDORSE TO ON COMING NURSE FOR HUY.
[2018-11-10 08:00] VITALS: BP 144/72
--- NOTE | 2018-11-10 08:00 | NUR ---
RN OPENING NOTES Received Patient comfortable and asleep in bed. A/O x 2. VS stable with no acute distress. G-tube placement checked. Residual 0. G-tube clean, dry and intact. IV access on LEFT HAND infiltrated, will remove and place new IV when Patient returns for CT Scan. Patient seen by Dr. Moeller. NECROTIC LEFT TOE dressing applied. Dressing clean, dry and intact. All medications administered. Bed bath done by STATIONARY EQUIPMENT MECHANIC. Turned and repositioned q2h. Patient seen by Speech Therapist. Diet texture upgraded to Mechanical Soft Chopped. Patient incontinent, using diaper. Daughter at bedside. Call light within reach. Will continue to monitor.
[2018-11-10] MEDS: PANTOPRAZOLE 40 MG VIAL IV SCH (08:49)
[2018-11-10] MEDS: PROSOURCE / PROSTAT (PYXIS) 30 ML UDC GT SCH ×2 (08:49→17:14)
[2018-11-10] MEDS: TAMSULOSIN 0.4 MG CAP.SR.24H GT SCH (08:49)
[2018-11-10] MEDS: GLUCERNA SHAKE 237 ML CAN GT SCH ×2 (08:49→21:19)
[2018-11-10] MEDS: MULTIVIT W/MINERALS 1 TAB TABLET GT SCH (08:49)
[2018-11-10] MEDS: LISINOPRIL (5MG) 5 MG TABLET GT SCH ×2 (08:51→17:13)
[2018-11-10] MEDS: METOPROLOL TARTRATE 50 MG TABLET GT SCH ×2 (08:52→17:14)
[2018-11-10] MEDS: TRAMADOL HCL 50 MG TABLET GT SCH ×3 (08:53→22:12)
--- NOTE | 2018-11-10 09:52 | NUR ---
RN NOTES Patient left for CT Scan w/o Contrast at this time. VS stable with no acute distress.
--- NOTE | 2018-11-10 10:20 | NUR ---
RN NOTES Patient returned from CT Scan. Patient comfortable in bed with no acute distress. VS stable. Son at bedside. Will continue to monitor.
--- NOTE | 2018-11-10 10:50 | NUR ---
RN NOTES Placed 22g IV access on RIGHT WRIST x 3 attempt at this time. Blood return noted and flushes well. IV site clean, dry and intact with no redness nor swelling. IV prevention stocking applied. Patient tolerated well. Turned and repositioned. Son at bedside. Will continue to monitor.
--- NOTE | 2018-11-10 12:20 | NUR ---
RN NOTES Obtained urine sample via In & Out Catheter. Noted clear, yellow urine. Patient tolerated well. VS stable with no acute distress. Turned and repositioned Patient. Urine sample in fridge waiting for poultry picking machine tender. Lab notified.
[2018-11-10 15:07] LABS: APPEARANCE,URINE SL CLOUDY (CLEAR); BILIRUBIN,URINE NEGATIVE (NEGATIVE); BLOOD, URINE TRACE Ery/uL (NEGATIVE); COLOR,URINE YELLOW (YELLOW); KETONES,URINE NEGATIVE (NEGATIVE); LEUKOCYTE ESTERASE ,URINE 2+ (NEGATIVE); NITRITE, URINE NEGATIVE (NEGATIVE); PROTEIN,URINE NEGATIVE (NEGATIVE); UGLUCOSE NEGATIVE (NEGATIVE); UROBILINOGEN,URINE 0.2 EU/dL (0.2)
[2018-11-10 15:53] LABS: RBC,URINE 0-3 /HPF (0-2)
[2018-11-10 15:54] LABS: BACTERIA,URINE Moderate /HPF (None Seen); SQUAMOUS EPITHELIAL CELL,UR Rare /HPF (None Seen)
[2018-11-10 16:00] VITALS: BP 134/68
--- NOTE | 2018-11-10 17:24 | NUR ---
RN NOTES Administered Tylenol 650mg via GTUBE per Patients request. Patient stated, "mucho dolerlinda". Patient moaning and observed massaging her LEFT LEG. VS stable. Turned and repositioned Patient. Will continue to monitor.
[2018-11-10] MEDS: INSULIN REGULAR, HUMAN 100 UNIT/ML 3 ML VIAL SQ PRN (17:57)
--- NOTE | 2018-11-10 19:15 | NUR ---
RN CLOSING NOTES Patient resting in bed. A/O x 2. VS stable. Patient stated discomfort on LEFT LEG. G-tube placement checked. Residual 0. G-tube clean, dry and intact. IV access on RIGHT WRIST 22G. IV site clean, dry and intact. Patient seen by Dr. Mckeon. NECROTIC LEFT TOE dressing clean, dry and intact. All medications administered. Turned and repositioned q2h. Patient incontinent and using diaper, clean and dry. Family at bedside. Call light within reach. Will endorse care of plan to oncoming nurse.
--- NOTE | 2018-11-10 19:40 | NUR ---
MS/RN OPENING NOTES PT RECEIVED ASLEEP, DAUGHTER AT BEDSIDE. ON ROOM AIR, BREATHING EVEN AND UNLABORED. OPENS EYES TO TOUCH. IS CONFUSED. IV TO RIGHT WRIST PATENT AND INTACT. GT IN PLACE. DRESSING TO LEFT FOOT C/D/I. SCHEDULED FOR SURGERY TOMORROW. CONSENT AND CHECKLIST TO BE COMPLETED. HOB ELEVATED. BED IN LOW/LOCKED POSITION WITH CALL LIGHT IN REACH. SIDE RAILS UPX3 AND BED ALARM ON FOR SAFETY. WILL CONTINUE TO MONITOR
[2018-11-10 20:00] VITALS: BP 109/54
--- NOTE | 2018-11-10 20:00 | NUR ---
MS/RN NOTES PT'S DAUGHTER, GEE HAWKINS [phone] SIGNED CONSENT ON BEHALF OF PT. WITNESSED BY DAY SHIFT RNGEMMA. CONSENTS FILED IN THE CHART. CONFIRMED SURGERY TIME OF 1200 TOMORROW PER SURGERY SCHEDULE WITH DAUGHTER
[2018-11-10] MEDS: VANCOMYCIN 1 GM in IV D5W 250 ML IV SCH (21:18)
--- NOTE | 2018-11-10 22:23 | NUR ---
MS/RN NOTES PT ROUNDING PERFORMED. PT AWAKE, WITH FACIAL GRIMACING AND GRASPING LEFT FOOT. ASKED PT IF SHE HAS PAIN, PT STATED "SI", HOWEVER UNABLE TO USE NUMERICAL PAIN SCALE. ADMINISTERED SCHEDULE ULTRAM ORDERED. WILL MONITOR FOR EFFECTIVENESS
[2018-11-11] MEDS: INSULIN REGULAR, HUMAN 100 UNIT/ML 3 ML VIAL SQ PRN ×3 (00:15→17:40)
[2018-11-11] MEDS: BLOOD SUGAR DIAGNOSTIC 1 EACH STRIP IN SCH ×4 (00:15→17:33)
--- NOTE | 2018-11-11 05:54 | NUR ---
MS/RN NOTES PT FOUND WITH GT PULLED OUT. REINSERTED GT TO SITE AND REINFORCED WITH DRESSING AND PAPER TAPE TO PREVENT SITE FROM CLOSING. NOTIFIED DR. MEDINA. AWAITING RESPONSE. WINDOWS ARCHITECT MADE AWARE.
[2018-11-11 06:58] LABS: CALCIUM, SERUM 8.2 mg/dL (8.5-10.1); CARBON DIOXIDE 26 mmol/L (21-32); CHLORIDE 104 mmol/L (98-107); CREATININE 0.6 mg/dL (0.6-1.3); GLUCOSE 127 mg/dL (74-106); POTASSIUM 3.7 mmol/L (3.5-5.1); SODIUM SERUM 138 mmol/L (136-145); UREA NITROGEN, BLOOD 17 mg/dL (7-18)
--- NOTE | 2018-11-11 06:59 | NUR ---
MS/RN CLOSING NOTES PT WITH ASLEEP, OPENS EYES TO NAME. IRISH SPEAKING, CONFUSED. ON ROOM AIR, BREATHING EVEN AND UNLABORED. NO S/S OF SOB OR PAIN AT THIS TIME. NO FACIAL GRIMACING NOTED. NPO POST MIDNIGHT. GT FOUND PULLED OUT, REINSERTED TO PREVENT SITE FROM CLOSING. NOTIFIED MD, STILL WAITING FOR POSSIBLE ORDERS. FOR SURGERY TODAY. CONSENTS SIGNED AND PLACED IN THE CHART. IV TO RIGHT WRIST PATENT AND INTACT. TURNED/REPOSITIONED Q2H, HEELS OFFLOADED. DRESSING TO LEFT FOOT C/D/I. BED REMAINS IN LOW/LOCKED POSITION WITH CALL LIGHT IN REACH, SIDE RAILS UPX3 AND BED ALARM ON FOR SAFETY. WILL ENDORSE TO DAY SHIFT RN HUY.
--- NOTE | 2018-11-11 07:15 | NUR ---
RN NOTES PATIENT A/OX1, BREATHING EVEN AND UNLABORED, NO SOB NOTED, KEPT COMFORTABLE, RECEIVED ENDORSEMENT FROM NIGHT PATIENT'S GTUBE WAS DISLODGED. 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 CORTEZ. PATIENT IN STABLE CONDITION, CALL LIGHT WITHIN REACH, BED ALARM ON, WILL CONTINUE TO MONITOR.
[2018-11-11 08:00] VITALS: BP 160/59
[2018-11-11] MEDS: LISINOPRIL (5MG) 5 MG TABLET GT SCH ×2 (09:00→17:00)
[2018-11-11] MEDS: MULTIVIT W/MINERALS 1 TAB TABLET GT SCH (09:00)
[2018-11-11] MEDS: TAMSULOSIN 0.4 MG CAP.SR.24H GT SCH (09:00)
[2018-11-11] MEDS: METOPROLOL TARTRATE 50 MG TABLET GT SCH ×2 (09:00→17:00)
[2018-11-11] MEDS: TRAMADOL HCL 50 MG TABLET GT SCH ×2 (09:00→21:41)
[2018-11-11] MEDS: GLUCERNA SHAKE 237 ML CAN GT SCH ×2 (09:00→21:00)
[2018-11-11] MEDS: PROSOURCE / PROSTAT (PYXIS) 30 ML UDC GT SCH ×2 (09:00→17:00)
[2018-11-11] MEDS: PANTOPRAZOLE 40 MG VIAL IV SCH (09:27)
[2018-11-11] MEDS ORDERED: LIDOCAINE 0.5% HCL 50 ML VIAL ONE (11:58)
[2018-11-11] MEDS ORDERED: LIDOCAINE HCL/PF 1% 30 ML SDV ONE (11:59)
[2018-11-11] MEDS ORDERED: BUPIVACAINE MPF 0.5% W/EPI INJ 30 ML VIAL ONE (12:00)
[2018-11-11] MEDS ORDERED: BUPIVACAINE 0.5 % PF 150 MG/30 ML VIAL ONE (12:02)
[2018-11-11] MEDS ORDERED: ANESTHESIA TRAY IN PYXIS 1 EA TRAY MC ONE (12:02)
[2018-11-11 13:25] VITALS: BP 148/76
--- NOTE | 2018-11-11 13:25 | NUR ---
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 PATIENT ASLEEP BUT EASILY AROUSABLE, NO DISTRESS NOTED. VITALS STABLE AND WILL BE MONITORED.
[2018-11-11] MEDS: VANCOMYCIN 1 GM in IV D5W 250 ML IV SCH (14:14)
[2018-11-11] MEDS: CEPHALEXIN MONOHYDRATE 250 MG/5 ML BOTTLE GT SCH ×2 (14:57→21:00)
--- NOTE | 2018-11-11 15:00 | NUR ---
RN NOTES S/P G-TUBE REPLACEMENT BY DR. FLACO WATSON AND PATIENT TOLERATED WELL. FAMILY AT BEDSIDE AND AWARE. FLUSHED WATER AND NO LEAKAGE NOTED. HOB ELEVATED. WILL CONTINUE TO MONITOR.
[2018-11-11 16:00] VITALS: BP 150/74
--- NOTE | 2018-11-11 18:31 | NUR ---
RN NOTES 1700 MEDS HELD AT THIS TIME, STILL WAITING FOR KUB RESULT IF GT IS IN PROPER PLACEMENT. PATIENT A/OX1, BREATHING EVEN AND UNLABORED, NO SOB NOTED, VSS, TURNED AND REPOSITIONED EVERY 2 HOURS, LLE DRESSING C/D/I. LEFT LE ELEVATED WITH PILLOW AT ALL TIMES BUT PATIENT MOVES HER LEGS. NEEDS ATTENDED AND MET, CALL LIGHT WITHIN REACH, WILL ENDORSE TO RESPITE COORDINATOR FOR HUY.
--- NOTE | 2018-11-11 19:40 | NUR ---
MSRN FULLY AWAKE, LEFT FOOT DRESSING DRY AND INTACT. REFUSED TO BE ELEVATED ON PILLOWS. FAMILY AT BEDSIDE VERY SUPPORTIVE. [place] SPEAKING ONLY, DAUGHTER TRANSLATING. REPOSITINED PER PATIENTS COMFORT. ALL NEEDS ATTENDED. PENDING RESULTS OF KUB.
[2018-11-11 20:00] VITALS: BP 142/87
--- NOTE | 2018-11-11 21:18 | NUR ---
MSRN REPEAT KUB AT BEDSIDE. WITH GASTROGRAFIN
--- NOTE | 2018-11-11 22:00 | NUR ---
MSRN PAIN MED WITH PUDDING ADMINISTERED BY DAUGHTER WITH SUPERVISION. AGREES PO FOOD WITH DAUGHTER.
[2018-11-12] MEDS: BLOOD SUGAR DIAGNOSTIC 1 EACH STRIP IN SCH ×5 (00:03→23:27)
--- NOTE | 2018-11-12 01:30 | NUR ---
MSRN REPEAT KUB RESULTED. GT IN PLACE,
--- NOTE | 2018-11-12 03:50 | NUR ---
MSRN SLEEPS ON/OFF. FREQ CHECKED. CLOSELY WATCHED.
[2018-11-12] MEDS: CEPHALEXIN MONOHYDRATE 250 MG/5 ML BOTTLE GT SCH (05:00)
--- NOTE | 2018-11-12 06:30 | NUR ---
MSRN BLOOD DRAWN. BS 122.
--- NOTE | 2018-11-12 07:15 | NUR ---
RN NOTES PATIENT A/OX1, BREATHING EVEN AND UNLABORED, NO SOB NOTED. NO S/SX OF PAIN OR DISCOMFORT NOTED. LEFT LOWER EXTREMITY ELEVATED BUT PATIENT KEPT MOVING BLE. NEEDS ATTENDED, CALL LIGHT WITHIN REACH, WILL CONTINUE TO MONITOR.
[2018-11-12 07:18] LABS: HEMATOCRIT 36 % (33-45); HEMOGLOBIN 11.8 g/dL (11.5-14.8); LYMPHOCYTES % (AUTO) 16.7 % (20.0-44.0); MEAN CORPUSCULAR HGB CONC 33 g/dl (31.0-36.0); MEAN CORPUSCULAR VOLUME 87 fL (82-100); NEUTROPHILS % (AUTO) 73.8 % (43.0-81.0); PLATELET COUNT (AUTO) 254 /CMM (150-450); RED BLOOD CELL COUNT(AUTO) 4.13 MIL/uL (4.0-5.2); WHITE BLOOD COUNT (AUTO) 12.3 K/uL (4.3-11.0)
[2018-11-12 07:19] LABS: BASOPHILS # (AUTO) 0.1 /CMM (0.0-0.2); BASOPHILS % (AUTO) 0.4 % (0.0-2.0); EOSINOPHILS % (AUTO) 0.5 % (0.0-6.0); MONOCYTES # (AUTO) 1.1 /CMM (0.1-1.30); MONOCYTES % (AUTO) 8.6 % (2.0-12.0); NEUTROPHILS # (AUTO) 9.1 /CMM (1.8-8.9)
[2018-11-12] MEDS ORDERED: ALENDRONATE 70 MG TABLET GT SCH (07:30)
[2018-11-12 07:53] LABS: CALCIUM, SERUM 8.7 mg/dL (8.5-10.1); CARBON DIOXIDE 26 mmol/L (21-32); CHLORIDE 104 mmol/L (98-107); CREATININE 0.6 mg/dL (0.6-1.3); GLUCOSE 119 mg/dL (74-106); MAGNESIUM 2.1 mg/dL (1.8-2.4); PHOSPHORUS 2.3 mg/dL (2.5-4.9); POTASSIUM 3.6 mmol/L (3.5-5.1); SODIUM SERUM 139 mmol/L (136-145); UREA NITROGEN, BLOOD 11 mg/dL (7-18)
[2018-11-12 08:00] VITALS: BP 132/66
[2018-11-12] MEDS: MULTIVIT W/MINERALS 1 TAB TABLET GT SCH (08:13)
[2018-11-12] MEDS: TAMSULOSIN 0.4 MG CAP.SR.24H GT SCH (08:13)
[2018-11-12] MEDS: VANCOMYCIN 1 GM in IV D5W 250 ML IV SCH (08:13)
[2018-11-12] MEDS: PANTOPRAZOLE 40 MG VIAL IV SCH (08:14)
[2018-11-12] MEDS: TRAMADOL HCL 50 MG TABLET GT SCH ×3 (08:14→21:21)
[2018-11-12] MEDS: LISINOPRIL (5MG) 5 MG TABLET GT SCH ×2 (08:14→16:55)
[2018-11-12] MEDS: GLUCERNA SHAKE 237 ML CAN GT SCH ×2 (08:15→21:21)
[2018-11-12] MEDS: METOPROLOL TARTRATE 50 MG TABLET GT SCH ×2 (08:15→16:55)
[2018-11-12] MEDS: PROSOURCE / PROSTAT (PYXIS) 30 ML UDC GT SCH ×2 (08:16→16:56)
[2018-11-12] MEDS ORDERED: VANC1PLA10 IV (11:36)
[2018-11-12] MEDS ORDERED: CEPH250S GT (11:36)
[2018-11-12] MEDS ORDERED: CEFT1VIA14 IV (12:09)
[2018-11-12] MEDS: INSULIN REGULAR, HUMAN 100 UNIT/ML 3 ML VIAL SQ PRN ×2 (12:39→17:44)
[2018-11-12] MEDS: CEFTRIAXONE 1 G in IV D5W 50 ML IV SCH (13:30)
[2018-11-12 15:00] VITALS: BP 134/80
--- NOTE | 2018-11-12 15:37 | NUR ---
RN NOTES PATIENT A/OX1, BREATHING EVEN AND UNLABORED, NO SOB NOTED, PERIPHERAL LINE INSERTED ON RIGHT HAND G22. PATENT AND FLUSHES WELL, SKIN ASSESSMENT COMPLETED AND PHOTOS TAKEN. WOUND TREATMENT RENDERED BY DR. CORTEZ. BELONGINGS RECONCILED AND COMPLETE. DISCHARGE INSTRUCTIONS GIVEN TO MANINDER RADER AT [facility]. NEEDS ATTENDED, VSS. PATIENT LEFT IN STABLE CONDITION VIA AMBULANCE. FAMILY MADE AWARE OF TRANSFER.
--- NOTE | 2018-11-12 16:41 | NUR ---
RN NOTES PATIENT CAME BACK FROM [facility], RECEIVED A CALL FROM [facility] THAT PATIENT IS COMING BACK DUE TO A RASH OUTBREAK AT THE FACILITY. CHARGE NURSE, MIXED CROP FARMER AND RN DIETARY WORKER MADE AWARE. PATIENT IN STABLE CONDITION.
[2018-11-12] MEDS ORDERED: diphenhydrAMINE HCL 25 MG CAPSULE MC ONE (17:30)
--- NOTE | 2018-11-12 18:24 | NUR ---
RN NOTES PATIENT A/OX1, RR EVEN AND UNLABORED, NO SOB NOTED, PIV ON RFA STILL FLUSHES AND INTACT. NO S/SX OF PAIN OR DISCOMFORT NOTED. RASH NOTED ON LEFT SIDE OF THE BODY, APPEARS TO BE AN ALLERGIC REACTION, DR. FLACO WATSON MADE AWARE AND RECEIVED ORDER FOR BENADRYL X1. BENADRYL GIVEN, AND RASHES SEEMS TO IMPROVED. NEEDS ATTENDED AND MET, TURNED AND REPOSITIONED EVERY 2 HOURS, WOUND TREATMENT RENDERED. SKIN CARE PROVIDED. CALL LIGHT WITHIN REACH, WILL ENDORSE TO OUTPATIENT CASE MANAGER FOR HUY.
--- NOTE | 2018-11-12 19:30 | NUR ---
RN NOTES Received pt. awake on bed, a/ox1-2, Mongolian speaking, no pain noted, no SOB, daughter at bedside, call light within reach, [id number], continue to monitor
[2018-11-12 20:00] VITALS: BP_SYST 131; BP_DIAS 58; BP_DIAS 89
--- NOTE | 2018-11-12 23:26 | NUR ---
RN NOTES BLOOD SUGAR- 190, NO COVERAGE GIVEN PT IS NOT EATING
[2018-11-13] MEDS: BLOOD SUGAR DIAGNOSTIC 1 EACH STRIP IN SCH ×3 (05:59→18:02)
--- NOTE | 2018-11-13 06:34 | NUR ---
RN NOTES SLEEPING BUT AROUSABLE, MORNING CARE RENDERED, CALL LIGHT WITHIN REACH, [id number], NOT IN DISTRESS, NO PAIN NOTED, PT. NEEDS ATTENDED
[2018-11-13] MEDS: INSULIN REGULAR, HUMAN 100 UNIT/ML 3 ML VIAL SQ PRN ×3 (06:49→18:04)
--- NOTE | 2018-11-13 07:27 | NUR ---
MS RN OPENING NOTES RECEIVED PT IN BED,ASLEEP. EASILY AWAKEN. A/O X1. PORTUGUESE SPEAKING. TOLERATING RA, WITH NO SOB NOTED. DENIES PAIN. RFA G22, FLUSHED WITH NS, INTACT AND PATENT. GT PRESENT, NO RESIDUALS, FLUSHED WITH 30 ML WATER. PT KEPT COMFORTABLE. BED N LOWEST, LOCKED POSITION WITH SR X2. CALL LIGHT KEPT WITHIN REACH.
[2018-11-13 08:00] VITALS: BP 167/74
[2018-11-13] MEDS: TAMSULOSIN 0.4 MG CAP.SR.24H GT SCH (09:08)
[2018-11-13] MEDS: PANTOPRAZOLE 40 MG VIAL IV SCH (09:08)
[2018-11-13] MEDS: MULTIVIT W/MINERALS 1 TAB TABLET GT SCH (09:08)
[2018-11-13] MEDS: METOPROLOL TARTRATE 50 MG TABLET GT SCH ×2 (09:09→17:52)
[2018-11-13] MEDS: LISINOPRIL (5MG) 5 MG TABLET GT SCH ×2 (09:09→17:52)
[2018-11-13] MEDS: TRAMADOL HCL 50 MG TABLET GT SCH ×2 (09:10→21:34)
[2018-11-13] MEDS: GLUCERNA SHAKE 237 ML CAN GT SCH ×2 (09:24→21:34)
[2018-11-13] MEDS: PROSOURCE / PROSTAT (PYXIS) 30 ML UDC GT SCH ×2 (09:25→17:52)
--- NOTE | 2018-11-13 14:00 | NUR ---
RN NOTES WOUND MD DR CORTEZ CAME AND CLEANED AND CHANGED WOUND DRESSING TO RIGHT TOES AMPUTEE. DRESSING KEPT CLEAN AND DRY. SPOKE TO SON PRESENT BEDSIDE REGARDING PLAN OF CARE.
[2018-11-13] MEDS: CEFTRIAXONE 1 G in IV D5W 50 ML IV SCH (14:37)
[2018-11-13 16:00] VITALS: BP 134/63
[2018-11-13] MEDS: cetrizine 10 MG TABLET PO SCH (17:53)
--- NOTE | 2018-11-13 19:30 | NUR ---
RN NOTES RECEIVED PT. AWAKE ON BED, DAUGHTER AT BEDSIDE, A/OX2, VIETNAMESE SPEAKING, G-TUBE IN PLACE- USED ONLY FOR MEDS, NO PAIN NOTED, NOT IN DISTRESS, CALL LIGHT WITHIN REACH, SIDERAILSUPX2, CONTINUE TO MONITOR
--- NOTE | 2018-11-13 19:53 | NUR ---
MS ACUTE CARE OCCUPATIONAL THERAPIST NOTES PT IN BED, AWAKE. A/O X1. BELGI[place] SPEAKING. TOLERATING RA, WITH NO SOB NOTED. DENIES PAIN. RFA G22, FLUSHED WITH NS, INTACT AND PATENT. GT PRESENT, NO RESIDUALS, FLUSHED WITH WATER BEFORE AND AFTER MEDICATIONS. PT KEPT COMFORTABLE. BED N LOWEST, LOCKED POSITION WITH SR X2. CALL LIGHT KEPT WITHIN REACH. ENDORSED TO INCOMING NURSE FOR HUY. Addendum: 11/13/18 at 2001 by HALIMA BUSH RN MS RN CLOSING NOTES
[2018-11-13 20:00] VITALS: BP 114/61
[2018-11-14] MEDS: BLOOD SUGAR DIAGNOSTIC 1 EACH STRIP IN SCH ×4 (00:10→17:39)
--- NOTE | 2018-11-14 00:10 | NUR ---
RN NOTES BLOOD [id number], NO COVERAGE GIVEN, PT. REFUSED TO EAT
--- NOTE | 2018-11-14 06:31 | NUR ---
RN NOTES SLEEPING BUT AROUSABLE,NO PAIN NOTED, NOT IN DISTRESS, SIDERAILSUPX2, PT. NEEDS ATTENDED
--- NOTE | 2018-11-14 07:27 | NUR ---
MS RN OPENING NOTES RECEIVED PT IN BED AWAKE. TOLERATING RA, WITH NO ACUTE RESPIRATORY DISTRESS. PIV TO RFA G22, FLUSHED WITH NS, INFILTRATION NOTED. PIV TO RFA REMOVED. INSERTED ANOTHER LINE TO PROXIMAL RFA G22, FLUSHED WITH NS, INTACT AND OPERATIONAL. PT'S BED KEPT IN LOWEST, LOCKED POSITION. CALL LIGHT WITHIN REACH. WILL CONTINUE PLAN OF CARE.
[2018-11-14 08:36] VITALS: BP 133/66
[2018-11-14] MEDS: LISINOPRIL (5MG) 5 MG TABLET GT SCH ×2 (08:52→17:22)
[2018-11-14] MEDS: PANTOPRAZOLE 40 MG VIAL IV SCH (08:52)
[2018-11-14] MEDS: MULTIVIT W/MINERALS 1 TAB TABLET GT SCH (08:52)
[2018-11-14] MEDS: PROSOURCE / PROSTAT (PYXIS) 30 ML UDC GT SCH ×2 (08:52→17:21)
[2018-11-14] MEDS: TAMSULOSIN 0.4 MG CAP.SR.24H GT SCH (08:53)
[2018-11-14] MEDS: METOPROLOL TARTRATE 50 MG TABLET GT SCH ×2 (08:53→17:22)
[2018-11-14] MEDS: TRAMADOL HCL 50 MG TABLET GT SCH ×2 (08:53→20:27)
[2018-11-14] MEDS: cetrizine 10 MG TABLET PO SCH (08:53)
[2018-11-14] MEDS: GLUCERNA SHAKE 237 ML CAN GT SCH (08:55)
--- NOTE | 2018-11-14 09:30 | NUR ---
MS RN NOTES PT REFUSED TO EAT BREAKFAST. ASSISTED, ENCOURAGED, STILL REFUSED. LEFT GLUCERNA BEDSIDE. WILL CONTINUE TO OFFER AND ENCOURAGE. PT IS INTERMITTENTLY DOZING OFF, EASILY TO AROUSE WHEN CALLED.
[2018-11-14] MEDS: INSULIN REGULAR, HUMAN 100 UNIT/ML 3 ML VIAL SQ PRN ×2 (11:54→17:41)
[2018-11-14] MEDS: CEFTRIAXONE 1 G in IV D5W 50 ML IV SCH (14:00)
--- NOTE | 2018-11-14 14:00 | NUR ---
RN NOTES SON CAME AND AWARE OF PT'S REFUSAL OF BREAKFAST TODAY. ATE 25% OF LUNCH.
[2018-11-14 15:46] VITALS: BP 149/59
--- NOTE | 2018-11-14 18:54 | NUR ---
MS RN CLOSING NOTES PT REMAINS INTERMITTENTLY DOZING OFF, EASILY AWAKEN. TOLERATING RA, WITH NO ACUTE RESPIRATORY DISTRESS. DENIES PAIN. PIV TO RFA G22, FLUSHED WITH NS, INTACT AND OPERATIONAL. GT PRESENT, NO RESIDUALS PRESENT; FLUSHED WITH 100ML WATER. PT KEPT COMFORTABLE, CLEAN AND DRY. PT'S BED KEPT IN LOWEST, LOCKED POSITION WITH SR X2. CALL LIGHT WITHIN REACH. WILL ENDORSE TO NEIGHT SHIFT NURSE FOR HUY.
--- NOTE | 2018-11-14 19:20 | NUR ---
MS/RN OPENING NOTES PT RECEIVED AWAKE, SITTING UP IN BED. FAMILY MEMBERS AT BEDSIDE. A/OX1, [place] SPEAKING. ON ROOM AIR, BREATHING EVEN AND UNLABORED. IN NO ACUTE DISTRESS, APPEARS COMFORTABLE AND NO S/S OF PAIN AT THIS TIME. IV TO RFA PATENT AND INTACT. GT PATENT AND INTACT, AUSCULTATED FOR PLACEMENT. BED IN LOW/LOCKED POSITION WITH CALL LIGHT IN REACH, SIDE RAILS UPX3 AND BED ALARM ON FOR SAFETY. WILL CONTINUE TO MONITOR
--- NOTE | 2018-11-14 20:05 | NUR ---
MS/RN NOTES CALLED [facility], SPOKE TO BASHIR. ROOM AVAILABLE 11B
[2018-11-14 20:28] VITALS: BP 162/80
--- NOTE | 2018-11-14 20:40 | NUR ---
MS/RN NOTES WIRELESS TECHNICIAN MOSHE ON UNIT. CLARIFIED IF PT WILL BE DISCHARGED TONIGHT. PER PT'S DAUGHTER GEE, SHE IS CONCERNED ABOUT SENDING HER BACK BECAUSE SNF WAS SUPPOSED TO BE CLEARED BY HEALTH DEPARTMENT. [facility] FOLLOWED UP, PT ACCEPTED BACK TO SNF. WAS CLEARED BY HEALTH DEPARTMENT TODAY AND AMBULANCE WAS ARRANGED. ETA 20 MINS. FAMILY UPDATED, ALL QUESTIONS/CONCERNS ANSWERED.
--- NOTE | 2018-11-14 21:10 | NUR ---
MS/RN NOTES GAVE REPORT TO DIOR LONDON
--- NOTE | 2018-11-14 21:25 | NUR ---
MS/RN NOTES PT DISCHARGED IN STABLE CONDITION. NO BELONGINGS ACCOUNTED FOR, PTS' DAUGHTER VERIFIED. DISCHARGE PAPERWORK COMPLETED, SIGNED BY DAUGHTER GEE AND SENT WITH PT. ALL DISCHARGE PAPERWORK COPIES MADE, PLACED IN THE CHART AND GIVEN TO AMBULANCE. IV AND WRIST BAND REMOVED. PHOTOS TAKEN AND PLACED IN THE CHART. PT LEFT UNIT WITH AMBULANCE VIA GURNEY IN STABLE CONDITION, FAMILY MEMBERS AT BEDSIDE.
== END 2018-11-14 21:20 | DRG 314 ==
LOC: ER 12:04 → MEDSG2 13:01 → MED 17:51 → UNDODISIN 11-12 16:00
PROVIDERS: ADMIT Nurse Practitioner Acute Care; ATTEND Nurse Practitioner Acute Care
DX: L03.116 Cellulitis of left lower limb (principal); I96 Gangrene, not elsewhere classified; G92 Toxic encephalopathy; E44.0 Moderate protein-calorie malnutrition; R53.2 Functional quadriplegia; D68.59 Other primary thrombophilia; E88.09 Other disorders of plasma-protein metabolism, not elsewhere classified; I48.91 Unspecified atrial fibrillation; R13.10 Dysphagia, unspecified; E11.52 Type 2 diabetes mellitus with diabetic peripheral angiopathy with gangrene; L03.032 Cellulitis of left toe; D63.8 Anemia in other chronic diseases classified elsewhere; E86.0 Dehydration; E66.9 Obesity, unspecified; E78.5 Hyperlipidemia, unspecified; I10 Essential (primary) hypertension; I25.10 Atherosclerotic heart disease of native coronary artery without angina pectoris; M19.90 Unspecified osteoarthritis, unspecified site; F03.90 Unspecified dementia, unspecified severity, without behavioral disturbance, psychotic disturbance, mood disturbance, and anxiety; N39.0 Urinary tract infection, site not specified; Z66 Do not resuscitate; Z95.0 Presence of cardiac pacemaker; Z79.84 Long term (current) use of oral hypoglycemic drugs; Z86.73 Personal history of transient ischemic attack (TIA), and cerebral infarction without residual deficits; Z68.23 Body mass index [BMI] 23.0-23.9, adult; M20.42 Other hammer toe(s) (acquired), left foot; M81.0 Age-related osteoporosis without current pathological fracture; B96.89 Other specified bacterial agents as the cause of diseases classified elsewhere; Z43.1 Encounter for attention to gastrostomy; Z79.4 Long term (current) use of insulin
CPT/HCPCS: 36415; 70450-TC; 71045-TC; 73630-TC; 74018; 80048-TC; 80076-TC; 80202-TC; 81000-TC; 82962-TC; 83605-TC; 83735-TC; 84100-TC; 84484-TC; 85025-TC; 85730-TC; 86850-TC; 87040-TC; 87070-TC; 87081-TC; 87086-TC; 87186-TC; 88305-TC; 88311-TC; 92611-TC; 94799-TC; A6402; A6403; C9113; G0378; J0696; J1815; J2060; J3370; J3490; J7030; J7040; J7050; J7060; Q0163; Q9963